=== PATIENT | male | born 1940 | race Caucasian/White ===

== ENCOUNTER → 2017-10-25 | Outpatient (CLI) | payer MEDICARE, OTHER ==
[~2017-10-25] MED LIST: OXYACE5T PO; [UNRECOGNIZED DRUG - REMARK]
[2017-10-25 16:16] LABS: Protein, Urine Quantitative 100.7 mg/dL (0.0-11.9)
== END ==
LOC: LAB 10:37 → LAB SHORT 10:37
PROVIDERS: Internal Medicine Nephrology
DX: N18.2 Chronic kidney disease, stage 2 (mild) (principal); D63.1 Anemia in chronic kidney disease; N25.81 Secondary hyperparathyroidism of renal origin; E55.9 Vitamin D deficiency, unspecified; E78.00 Pure hypercholesterolemia, unspecified; R76.9 Abnormal immunological finding in serum, unspecified; R94.5 Abnormal results of liver function studies; R94.6 Abnormal results of thyroid function studies; D51.8 Other vitamin B12 deficiency anemias
CPT/HCPCS: 81050; 82043; 84156